=== PATIENT | male | born 2000 | race Caucasian/White ===

== ENCOUNTER 2021-07-15 10:13 | Emergency (ER) | payer OTHER ==
[~2021-07-15] VITALS: Ht 180.3 cm; Wt 72.6 kg
[2021-07-15 10:57] LABS: AMP/METHAMP Negative (Negative); BARBITURATES Negative (Negative); BENZODIAZEPINES Negative (Negative); COCAINE Negative (Negative); METHADONE Negative (Negative); OPIATES Negative (Negative); PCP Negative (Negative)
[2021-07-15 10:58] LABS: ANION GAP 11 mmol/L (7-16); BUN 12 mg/dL (7-18); CALCIUM 9.8 mg/dL (8.5-10.1); CHLORIDE 103 mmol/L (98-107); CO2 27 mmol/L (21-32); CREATININE 0.8 mg/dL (0.7-1.3); GLUCOSE 127 mg/dL (74-106); POTASSIUM 4.7 mmol/L (3.5-5.1); SALICYLATE < 2.8 mg/dL (2.8-20.0); SODIUM 141 mmol/L (136-145)
[2021-07-15 11:10] LABS: ABSOLUTE NEUTROPHILS 7.9 thou/uL (1.4-8.2); BASOPHILS 0.7 % (0.0-2.0); EOSINOPHILS 0.3 % (0.0-3.0); HEMATOCRIT 39.3 % (42.0-52.0); HEMOGLOBIN 13.2 gm/dL (14.0-18.0); LYMPHOCYTES 19.8 % (24.0-44.0); MCH 28.3 pg (26.0-34.0); MCHC 33.6 g/dL (28.0-37.0); MCV 84.3 fL (80.0-100.0); MONOCYTES 3.3 % (1.0-8.0); POLYS 75.9 % (36.0-66.0); RBC 4.66 mil/uL (4.50-6.00); RDW 14.8 % (10.5-14.5); WBC 10.3 thou/uL (4.0-11.0)
[2021-07-15 11:45] LABS: LARGE PLATELETS FEW; PLATELET COUNT 403 thou/uL (150-400)
[2021-07-15 11:49] LABS: ANISOCYTOSIS 1+; POIKILOCYTOSIS SLIGHT
[2021-07-15 12:23] VITALS: BP 111/63
--- NOTE | 2021-07-15 12:49 | EKG ---
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
== END 2021-07-15 12:24 | disposition home or self-care (01) ==
LOC: ER 10:13
PROVIDERS: Student in an Organized Health Care Education/Training Program
DX: R41.82 Altered mental status, unspecified (principal); Z20.822 Contact with and (suspected) exposure to COVID-19; R51.9 Headache, unspecified; R11.2 Nausea with vomiting, unspecified; R47.81 Slurred speech; R53.83 Other fatigue